=== PATIENT | male | born 1945 | race Caucasian/White ===

== ENCOUNTER 2016-10-21 16:45 | Inpatient (IN) | payer MEDICARE, OTHER ==
--- NOTE | ~2016-10-21 | XA166 ---
[facility] A Service of [facility] & [facility] RADIOLOGY TEXT RESULTS PATIENT: EAMON DURON LOCATION: [facility] 563-01 : 46 UNIT #: [id number] AGE: [address]: Cassidy Gutierrez MD SEX: M ORDER DR: [id number] [facility] [address] [facility]. [place], [place] [address] [id number] I MR#: [id number] Acc #: [id number] NAME: EAMON DURON : 1945 SEX: M STUDY DATE/TIME: 10/27/2016 15:30 UNIT: [facility] ROOM: [facility] STUDY DESCRIPTION: XA PICC Line Placement WO Port Attending Physician: Cassidy Gutierrez M.D. Ordering Physician: Cassidy Gutierrez M.D. Primary Care Physician: Hema Bazan II, M.D. MEDICAL IMAGING REPORT This report is preliminary unless electronic signature is present EXAM PICC line placement 10/27/2016 HISTORY 70-year-old male who needs IV access. PRE-PROCEDURE The procedure was explained to the patient and/or patient special service representative including risks, benefits, potential complications and potential for alternative forms of treatment. Informed consent was obtained, and prior to initiating the procedure a formal timeout procedure was performed. PROCEDURE Using full standard sterile barrier technique, including caps, gowns, gloves, masks, as well as sterile skin preparation and standard sterile draping, the left arm was prepped and draped in the usual fashion, and real-time sterile ultrasound guidance was used to localize an arm vein and to confirm vessel patency. A hard copy ultrasound image was recorded. Left basilic vein was utilized. After local anesthesia with 1% Xylocaine, the vein was punctured using real-time sterile ultrasound guidance, and an 0.018 guidewire was advanced into the superior vena cava, using fluoroscopic guidance. A 5-Martiniquais 42 cm double-lumen PICC was then measured and deployed with the tip positioned in the superior vena cava. The position of the line was documented with a radiographic image. The line was secured in place with an adhesive dressing and an antibiotic patch was applied. Total fluoro time was 0.4 minutes. Reference air kerma 3 mGy. IMPRESSION Successful placement of a 5-Martiniquais 42 cm double-lumen PowerPICC via the left arm under ultrasound and fluoroscopic guidance. The tip of the PICC is in good position in the superior vena cava. [facility]. [facility] A Service of [facility] & [facility] RADIOLOGY TEXT RESULTS PATIENT: EAMON DURON LOCATION: [facility] 563-01 : 46 UNIT #: [id number] AGE: [address]: Cassidy Gutierrez MD SEX: M ORDER DR: Dictated by... Clyde Etienne M.D. THIS IS AN ELECTRONICALLY VERIFIED REPORT Clyde Etienne M.D. at 10/28/2016 8:09 AM Darinel TD: 10/27/2016 18:20 JOB #: [id number] MEDICAL IMAGING REPORT COPY
--- NOTE | ~2016-10-21 | HP ---
Unit #: [id number] #: [id number] Patient: EAMON DURON [id number] [facility] [address]. [place], [place] [address] [id number] I MR#: [id number] NAME: EAMON DURON ROOM: 563 Age: 70 Sex: M Admission Date: 10/21/2016 : 1945 Attending Physician: Julia Garzon M.D. Primary Care Physician: Hema Bazan II, M.D. HISTORY AND PHYSICAL CHIEF COMPLAINT Acute kidney injury. HISTORY OF PRESENT ILLNESS The patient is a 70-year-old male with past medical history of hypertension, GERD, cerebral palsy, mental retardation, who was admitted to [facility] on October 19, 2016 for laparoscopic cholecystectomy. He was apparently initially admitted by the surgery service there. He was found to have dense adhesions during the procedure and was converted to open cholecystectomy with adhesiolysis and partial omentectomy. A drain was placed. He apparently was somewhat tachycardic post procedure and so Medicine was consulted regarding that issue. It was thought to be secondary to pain. Metoprolol is apparently a home medication and was restarted. The patient was transferred to [facility] today due to worsening renal function. The patient's BUN and creatinine were 15 and 1.12 on October 19, 2016. Today they were noted to be 25 and 2.71 respectively. The patient was started on Levaquin postoperatively. The patient is really unable to provide history. Per nursing, he has been tolerating a clear liquid diet. He incontinent so his urine output is unknown. It is unclear when his last bowel movement was. I do not see any urinalysis in the records that were sent with the patient. He is on lisinopril as a home medication which could be contributing as well. PAST MEDICAL HISTORY 1. Mental retardation. 2. Cerebral palsy. 3. Seizure disorder. 4. Hypertension. 5. Immobility. 6. GERD. 7. Hypertension. 8. Dysphagia. PAST SURGICAL HISTORY Open cholecystectomy. SOCIAL HISTORY The patient resides at [place]. There is no tobacco or alcohol use. He is immobile. His code status is a Do Not Resuscitate per discussion with the patient's guardian (Jesse Kaur). That conversation was per nursing. FAMILY HISTORY Unit #: [id number] #: [id number] Patient: EAMON DURON Family history is unobtainable. REVIEW OF SYSTEMS A complete 10-point review of systems is negative except as indicated in the HPI but somewhat limited due to the patient's baseline mental status. DIAGNOSTIC STUDIES LABORATORY: Complete blood count from today showed white blood cell count of 11.1, hemoglobin and hematocrit 10.8 and 33 respectively, platelets are 235. Comprehensive metabolic panel notable for sodium of 141, potassium 4.5, chloride 113, bicarb 21, BUN and creatinine 25 and 2.71 respectively, albumin is 1.3, calcium is 7.4 but corrects to 9.6 when albumin is accounted for. Total protein is 4.2. PHYSICAL EXAMINATION VITAL SIGNS: Temperature 36.8. Heart rate 110. Respirations 20. Blood pressure 143/80. Oxygen saturation 96% on room air. GENERAL: The patient is awake and alert, in no acute distress. HEENT: The head is atraumatic. Mucous membranes are moist. NECK: Neck is supple. Trachea is midline. CARDIOVASCULAR: Regular rate and rhythm. LUNGS: Lungs are clear to auscultation bilaterally with no increased work of breathing. ABDOMEN: Abdomen is soft. Bowel sounds are decreased. There is a bandage that is clean, dry and intact. He also has a YANNA drain with 25 mL of serosanguineous fluid. EXTREMITIES: Show contractures involving the right upper extremity and bilateral lower extremities. There is 3+ pitting edema of the lower extremities. NEUROLOGIC: The patient is awake and alert. SKIN: Skin of examined areas is warm and dry. ASSESSMENT The patient is a 70-year-old male with: 1. Postoperative day number two status post open cholecystectomy. The patient was being followed by Dr. Pruett in [facility]. 2. Acute kidney injury. The patient's creatinine was 1.12 on October 19, 2016. It is 2.71 today. It is unclear if the patient has baseline chronic kidney disease. He was started on Levaquin which could be nephrotoxic. Additionally he is on lisinopril as a home medication that could be contributing as well. I am told that he is tolerating a liquid diet. There is no urinalysis for review. 3. Tachycardia. The patient is on metoprolol. Heart rate was 110 most recently. 4. Dysphagia. 5. Gastroesophageal reflux disease. 6. Cerebral palsy/mental retardation. 7. History of seizures. I do not see any antiepileptic medications on his home medication list. 8. History of methicillin-resistant Staphylococcus aureus. PLAN 1. Admit to intermediate level. 2. Liquid diet. 3. Bedrest. 4. Fall precautions. 5. Consult [facility] regarding open Unit #: [id number] #: [id number] Patient: EAMON DURON cholecystectomy, postop day number two. 6. Urinalysis with culture and sensitivity. 7. Strict Is and Os. 8. STAT labs including CBC, comprehensive metabolic panel, CPK. 9. Check urinalysis. 10. Urine sodium, creatinine and eosinophils. 11. Renal ultrasound. 12. Consult Dr. Macedo regarding acute kidney injury. 13. Discontinue Levaquin. 14. Hold lisinopril and pantoprazole. 15. Will start Zosyn. It appears that the patient was on antibiotics postoperatively. Will start Zosyn pending further recommendations. 16. Fasting lipoid panel. 17. Repeat labs in the morning. 18. Additional workup and consultants based on above. Dictated by Julia Garzon M.D. DESTINY/connie TD: 10/21/2016 17:46 JOB #: [id number] HISTORY AND PHYSICAL X Julia Garzon MD HISTORY AND PHYSICAL
--- NOTE | ~2016-10-21 | DS ---
Unit #: [id number] #: [id number] Patient: EAMON DURON [id number] [address] [address] [id number] I MR#: [id number] NAME: EAMON DURON ROOM: 563 Age: 70 Sex: M Admission Date: 10/21/2016 : 1945 Discharge Date: Attending Physician: Cassidy Gutierrez M.D. Primary Care Physician: Hema Bazan II, M.D. DISCHARGE SUMMARY DISCHARGE DIAGNOSES 1. Acute kidney injury, likely acute tubular necrosis on top of nephrotic syndrome. 2. Nephrotic syndrome. The patient's power of assistant city attorney, Jesse, decided no biopsy and no dialysis. 3. Hypertension, uncontrolled. 4. Hypokalemia. 5. Proteinuria, secondary to nephrotic syndrome. 6. Severe fluid overload, most likely secondary to nephrotic syndrome, likely membranous. Biopsy not done because the power of assistant city attorney does not want it. 7. Yeast urinary tract infection, status post Diflucan. 8. Urinary retention with urethral stricture. The patient had a cystoscopy with urethral dilatation and catheter placement. 9. Recent open cholecystectomy at [facility]. 10. History of mental retardation. 11. Cerebral palsy. 12. Seizure disorder. 13. Immobility. 14. Severe contractures of his extremities. 15. Gastroesophageal reflux disease. 16. Dysphagia. 17. Hypocalcemia. 18. Hypophosphatemia. 19. Hypomagnesemia. 20. Severe protein malnutrition. 21. Anemia, no active bleeding, iron deficiency. CONSULTATIONS 1. Dr. Fitzpatrick. 2. Dr. Macedo. PROCEDURE The patient had cystoscopy with urethral dilatation and catheter placement. DIAGNOSTIC STUDIES LABORATORY: Sodium 141, potassium 3.4, creatinine 4.3, carbon dioxide 24, calcium 7.5. Blood cultures negative. Urine culture growing yeast species, otherwise negative. WBC 11.1, hemoglobin 9.8, platelets 298,000. Complement C3 level is 138. Complement C4 is 33. TSH 2.96. IMAGING: KUB shows some gas, no definite small bowel obstruction. Unit #: [id number] #: [id number] Patient: EAMON DURON Ultrasound of the extremities are negative for left upper extremity venous thrombosis, nonocclusive DVT in the right axillary vein surrounding the indwelling PICC line present. Later, PICC line has been removed. Ultrasound of the kidney shows large cyst in the left kidney, no hydronephrosis, nonspecific fluid collection in the left lower quadrant present. ALLERGIES None. DISCHARGE MEDICATIONS 1. Sodium bicarbonate 650 mg p.o. b.i.d. 2. Tylenol 1000 mg q.6 p.r.n. pain. 3. Ketoconazole 120 mL shampoo to scalp two times weekly. 4. Miconazole nitrate 2% powder apply topically b.i.d. 5. Toprol XL 25 mg p.o. b.i.d. 6. Bisacodyl 10 mg p.r.n. constipation. 7. Senna one tablet daily. 8. Metamucil one packet daily. 9. Bumex 1 mg daily. 10. Pepcid 40 mg daily. 11. Omeprazole 20 daily. HOSPITALIZATION COURSE A 70 year old admitted because of kidney failure. Acute kidney injury, most likely ATN on top of nephrotic syndrome: The patient is seen by Dr. Christian. Because of worsening creatinine, myself and Dr. Christian talked to patient's POA, Jesse. According to him, he does not want any biopsy or dialysis, so no biopsy or no dialysis done. The patient is a very poor candidate for dialysis anyway because of his cerebral palsy and severe contractures of his limbs and mental retardation. The patient was treated medically by Dr. Christian. His creatinine is getting worse, so his POA decided on comfort measures only. He wants him to go back to [facility] and have comfort measures there. Proteinuria, nephrotic syndrome: Likely membranous. Patient did not have biopsy as per POA request. Also, patient has severe protein malnutrition. Sample Grinder was following. Urinary tract infection with yeast: The patient received Diflucan and Rocephin. Rocephin has been discontinued later as the cultures were negative otherwise. Severe fluid overload from proteinuria and nephrotic syndrome: The patient received IV and diuretics. Currently, he is on p.o. Bumex which I am going to continue. I gave prescription. Recent open cholecystectomy: The patient is seen by surgeon. According to them, the wound looks good. Abdomen looks good. He had a KUB which did not show any obstruction. Urinary retention: The patient could not have a catheter placed initially, so urology has been contacted. Later patient was taken to OR for cystoscopy and Malloy catheter placement and urethral dilatation. He did have urethral stricture as per dictation of the urologist. Unit #: [id number] #: [id number] Patient: EAMON DURON Right axillary vein nonocclusive DVT: The patient had a PICC line at that area, which has been removed later. Currently, he does have swelling in all four extremities. DISPOSITION The patient will be discharged to [place] as per Jesse CACERES, request. The patient will have comfort measures there. The patient is a DNR. Discharge time taken is 35 minutes. Discussed with POA. His name is Jesse. Also, discussed with Dr. Christian, nephrology. He is okay for the patient to be discharged to [place] for comfort measures. Dictated by... Saji Morfin TD: 10/29/2016 15:36 JOB #: [id number] DISCHARGE SUMMARY X Cassidy Gutierrez MD X DISCHARGE SUMMARY
--- NOTE | ~2016-10-21 | US139 ---
[facility] A Service of [facility] & [facility] RADIOLOGY TEXT RESULTS PATIENT: EAMON DURON LOCATION: [facility] 563-01 : 46 UNIT #: [id number] AGE: [address]: Cassidy Gutierrez MD SEX: M ORDER DR: [id number] [facility] [address] [place], [place] [address] [id number] I MR#: [id number] Acc #: [id number] NAME: EAMON DURON : 1945 SEX: M STUDY DATE/TIME: 10/26/2016 17:15 UNIT: [facility] ROOM: [facility] STUDY DESCRIPTION: US UE Veins Complete [place] Stdy Attending Physician: Cassidy Gutierrez M.D. Ordering Physician: Cassidy Gutierrez M.D. Primary Care Physician: Hema Bazan II, M.D. MEDICAL IMAGING REPORT This report is preliminary unless electronic signature is present EXAM Bilateral upper extremity duplex Doppler venous ultrasound, 10/26/2016 COMPARISON None. INDICATION 70-year-old male with bilateral upper arm swelling since today. History of cerebral palsy with right arm contraction. Recent placement of a right upper surety PICC on October 22, 2016. FINDINGS RIGHT ARM: The internal jugular vein is fully compressible with normal internal color flow, waveform flow direction. PICC line is seen within the right subclavian vein. Color flow and expected waveform and flow direction are noted in the right subclavian vein. The right axillary vein appears incompletely compressible around the indwelling PICC. There also is diminished flow in the right axillary vein and findings are most consistent with a nonocclusive deep venous thrombosis. There is mild edema in the subcutaneous tissues of the right upper extremity at the level of the cephalic vein proximally. The right cephalic vein is fully compressible. Right basilic vein is fully compressible and the paired brachial veins are fully compressible. There is color flow within the brachial veins. LEFT ARM: Venous ultrasound examination of the left upper extremity was performed using grayscale, spectral Doppler and color flow Doppler imaging. Negative for left upper extremity venous thrombosis. IMPRESSION 1. Negative for left upper extremity venous thrombosis. STS. [facility] A Service of [facility] & [facility] RADIOLOGY TEXT RESULTS PATIENT: EAMON DURON LOCATION: [facility] 563-01 : [birth year] UNIT #: [id number] AGE: [address]: Cassidy Gutierrez MD SEX: M ORDER DR: 2. Nonocclusive deep venous thrombosis in the right axillary vein surrounding the patient's indwelling PICC. Otherwise negative for venous thrombosis in the right upper extremity. Dictated by... Hesham Alicea M.D. THIS IS AN ELECTRONICALLY VERIFIED REPORT Hesham Alicea M.D. at 11/01/2016 5:46 PM JENNIFER/vanesa TD: 10/26/2016 23:37 JOB #: [id number] MEDICAL IMAGING REPORT COPY
--- NOTE | ~2016-10-21 | OR ---
Unit #: [id number] #: [id number] Patient: EAMON DURON [id number] [address] [address] [id number] I MR#: [id number] NAME: EAMON DURON ROOM: 563 Date of Procedure: 10/22/2016 Admission Date: 10/21/2016 Surgeon: Favian Fitzpatrick M.D. : 1945 Attending Physician: Nessa Cisneros M.D. Primary Care Physician: Hema Bazan II, M.D. OPERATIVE REPORT PREOPERATIVE DIAGNOSIS Urinary retention. POSTOPERATIVE DIAGNOSIS Urethral stricture. PROCEDURES PERFORMED Cystoscopy, urethral dilation, and catheter placement. ANESTHESIA MAC. DESCRIPTION OF PROCEDURE After informed consent, he was placed supine on the bed. His penis and perineum were prepped and draped in usual sterile fashion. Monitored anesthesia care was maintained during the procedure with flexible cystoscopy. He had a very obvious pinpoint bulbar urethral stricture using the wire, S-shaped dilators, and regular Amplatz dilators. I was able to dilate him up to 22-Greenlandic. I then placed a 16-Greenlandic [place] tipped catheter into the very firm stricture. He had clear return of urine slightly pink tinged. The catheter was placed for drainage. I secured it to his leg with foam tape. We will need to leave the catheter in for at least 1 to 2 weeks before removing the catheter. The patient tolerated the procedure well. Dictated by... Saji Levy/josesito TD: 10/23/2016 13:29 JOB #: [id number] Unit #: [id number] #: [id number] Patient: EAMON DURON OPERATIVE REPORT X Favian Fitzpatrick MD X PROCEDURE OPERATIVE NOTE
--- NOTE | ~2016-10-21 | US77 ---
[facility] A Service of [facility] RADIOLOGY TEXT RESULTS PATIENT: EAMON DURON LOCATION: [facility] 563-01 : [birth year] UNIT #: [id number] AGE: [address]: Cassidy Gutierrez MD SEX: M ORDER DR: [id number] [facility] [address] [facility] [place], [place] [address] [id number] I MR#: [id number] Acc #: [id number] NAME: EAMON DURON : 1945 SEX: M STUDY DATE/TIME: 10/22/2016 8:31 UNIT: [facility] ROOM: [facility] STUDY DESCRIPTION: US Kidney Bilateral Complete Attending Physician: Nessa Cisneros M.D. Ordering Physician: Julia Garzon M.D. Primary Care Physician: Hema Bazan II, M.D. MEDICAL IMAGING REPORT This report is preliminary unless electronic signature is present EXAM Renal ultrasound INDICATION Acute renal failure. BUN 38, creatinine 2.8, GFR 24. PROCEDURE Ling-scale and Doppler imaging of the kidneys, bladder. COMPARISON None FINDINGS Right kidney is not well seen but measures approximately 10.0 cm. Bladder decompressed by a Malloy catheter and not well seen. There is some fluid seen in the left lower quadrant of the abdomen. There is a 6.9 x 7.7 cm cyst from the left kidney. The left kidney measures 11.0 cm. No hydronephrosis. IMPRESSION 1. Large cyst in the left kidney. 2. No hydronephrosis. 3. Bladder decompressed by a Malloy catheter. 4. Nonspecific fluid is seen in the left lower quadrant of the abdomen. Dictated by... Parker Parker M.D. THIS IS AN ELECTRONICALLY VERIFIED REPORT Parker Parker M.D. at 10/25/2016 9:52 AM Lois TD: 10/22/2016 11:56 [facility] A Service [facility] RADIOLOGY TEXT RESULTS PATIENT: EAMON DURON [facility]63-[facility] [id number] : [birth year] UNIT #: [id number] AGE: [address]: Cassidy Gutierrez MD SEX: M ORDER DR: JOB #: [id number] MEDICAL IMAGING REPORT COPY
--- NOTE | ~2016-10-21 | CO ---
Unit #: [id number] #: [id number] Patient: ELIE BOYLE [id number] [facility]. [place], [place] [address] [id number] I MR#: [id number] NAME: ELIE BOYLE ROOM: 563 Age: 70 Sex: M Admission Date: 10/21/2016 : 1945 Attending Physician: Nessa Cisneros M.D. Primary Care Physician: Hema Bazan II, M.D. Consultation Date: 10/22/2016 CONSULTATION REPORT REASON FOR CONSULTATION Renal insufficiency. Thank you very much for asking us to see this patient in consultation. HISTORY OF PRESENT ILLNESS Mr. Elie Boyle is a 70-year-old gentleman with history of cerebral palsy and mental retardation, who was at [facility] in [place], where he presented on 10/19/2016 with abdominal pain and subsequently was diagnosed with gallbladder disease. Initially, he underwent a laparoscopic cholecystectomy converted to an open cholecystectomy which was done. He was noted prior to surgery to have creatinine of 1.2, it was up to 2.7 yesterday, he was transferred here for further medical care. The patient has a small IV in his foot with not very good function, no catheter, and he does have a history of urinary incontinence. The patient is arousable, but confused. He appears to be comfortable. PAST MEDICAL HISTORY History of hypertension, history of gastroesophageal reflux disease, history of cerebral palsy, history of mental retardation, history of urinary incontinence. ALLERGIES No known drug allergies. CURRENT MEDICATIONS Include Zosyn, Toprol, Pepcid, Senokot, he was apparently given Levaquin there at [facility] in [place]. SOCIAL HISTORY He lives in [facility]. No smoking. No alcohol. FAMILY HISTORY Unable to obtain. REVIEW OF SYSTEMS Unable to obtain. PHYSICAL EXAMINATION VITAL SIGNS: Temperature T-max 99.1, pulse 91 to 111, blood pressure 104 to 124 over 59 to 83 and 550 in and out 125 plus. HEENT: He is normocephalic and atraumatic. Pupils are equal, round, and reactive to light. Extraocular muscles are intact. Hearing appears to be fairly normal, but again it very difficult to assess. His mouth is clear. Unit #: [id number] #: [id number] Patient: ELIE BOYLE No erythema. No exudate. NECK: Supple. No adenopathy. CARDIAC: He has a regular rhythm without a rub. No S3 or S4. LUNGS: His lung sounds fairly clear anteriorly and laterally. ABDOMEN: To drain. Bowel sounds are positive. He does have some positive body edema. He has positive penile edema. EXTREMITIES: He has mild lower extremity edema. His pulses are intact in upper and lower extremities. NEURO: Appears again confused. He is able to move all extremities. : Again, penile edema. Malloy catheter has not been placed yet due to difficulty and is being consulted. SKIN: No acute rashes. DIAGNOSTIC STUDIES LABORATORY RESULTS: Shows sodium of 134, potassium 4.2, chloride is 108, bicarb is 19, BUN of 30, creatinine 2.8 with glucose of 147, calcium 7.2, albumin is 1.3. CPK is 414. Hemoglobin is 11, white count 11,800, and platelets 259,000. ASSESSMENT AND PLAN 1. Acute kidney injury. This gentleman with increasing BUN and creatinine. Decreased output?. Certainly agree with getting a Malloy catheter and we will check renal ultrasound. Once the Malloy was in, we will follow his input and output. We will also check urine studies including UA, culture and sensitivity, urine eosinophils, random urine sodium. I agree with his current medications. He does have increased third space fluid on exam, although he theoretically still could be intravascularly depleted. We will put him on some mild hydration of D5W with 3 amps of bicarb at 75 mL/hour and will follow. He does have a very low albumin as well which contributing to his third space fluid. He has mild increased CPK, I do not think this is playing a role. We will re-check full set of electrolytes in the morning including CPK, troponin CMP, magnesium, and CBC. We will also check blood cultures and again urine cultures to rule out infectious etiologies. We will continue to follow. 2. Metabolic acidosis secondary to renal failure. Again, we will add bicarb and fluids. We will follow. 3. Status post open cholecystectomy. 4. Mental retardation. Dictated byClara Macedo M.D. RIGOBERTO/josesito TD: 10/23/2016 01:59 JOB #: [id number] CONSULTATION REPORT X Fredrick Macedo MD X CONSULTATION REPORT
--- NOTE | ~2016-10-21 | XA166 ---
[facility] A Service of [facility] & [facility] RADIOLOGY TEXT RESULTS PATIENT: EAMON DURON LOCATION: [facility] 563-01 : [birth year] UNIT #: [id number] AGE: [address]: Cassidy Gutierrez MD SEX: M ORDER DR: [id number] [facility]. [place], [place] [address] [id number] I MR#: [id number] #: [id number] NAME: EAMON DURON : 1945 SEX: M STUDY DATE/TIME: 10/22/2016 14:49 UNIT: [facility] ROOM: [facility] STUDY DESCRIPTION: XA PICC Line Placement WO Port Attending Physician: Cassidy Gutierrez M.D. Ordering Physician: Julia Garzon M.D. Primary Care Physician: Hema Bazan II, M.D. MEDICAL IMAGING REPORT This report is preliminary unless electronic signature is present EXAM PICC line placement INDICATIONS As before the access in a patient with acute renal failure, patient is to undergo surgery. PRE-PROCEDURE The procedure was explained to the patient and/or patient assisted sales representative including risks, benefits, potential complications and potential for alternative forms of treatment. Informed consent was obtained, and prior to initiating the procedure a formal timeout procedure was performed. PROCEDURE Using full standard sterile barrier technique, including caps, gowns, gloves, masks, as well as sterile skin preparation and standard sterile draping, the right arm was prepped and draped in the usual fashion, and real-time sterile ultrasound guidance was used to localize an arm vein and to confirm vessel patency. A hard copy ultrasound image was recorded. After local anesthesia with 1% Xylocaine, the vein was punctured using real-time sterile ultrasound guidance, and an 0.018 guidewire was advanced into the superior vena cava, using fluoroscopic guidance. A 5-Dominican dual-lumen PICC was then measured and deployed with the tip positioned in the superior vena cava. The position of the line was documented with a radiographic image. The line was secured in place with an adhesive dressing and an antibiotic patch was applied. Total fluoro time was 0.9 minutes. Ak was 4 mGy. IMPRESSION Successful placement of a 5-Dominican dual-lumen PowerPICC via the right arm [facility] A Service of [facility] RADIOLOGY TEXT RESULTS PATIENT: EAMON DURON LOCATION: [facility] 563-01 : [birth year] UNIT #: [id number] AGE: [address]: Cassidy Gutierrez MD SEX: M ORDER DR: under ultrasound and fluoroscopic guidance. The tip of the PICC is in good position in the superior vena cava. Dictated by... Kenzie Brewster M.D. THIS IS AN ELECTRONICALLY VERIFIED REPORT Kenzie Brewster M.D. at 10/25/2016 5:09 PM DARIANA/alverto TD: 10/25/2016 10:01 JOB #: [id number] MEDICAL IMAGING REPORT COPY
--- NOTE | ~2016-10-21 | CR4 ---
[facility] A Service of [facility] RADIOLOGY TEXT RESULTS PATIENT: EAMON DURON LOCATION: [facility] 5611-03 : [birth year] UNIT #: [id number] AGE: [address]: Cassidy Gutierrez MD SEX: M ORDER DR: [id number] [facility] [address] [facility]. [place], [place] [address] [id number] I MR#: [id number] Acc #: [id number] NAME: EAMON DURON : 1945 SEX: M STUDY DATE/TIME: 10/27/2016 16:10 UNIT: [facility] ROOM: [facility] STUDY DESCRIPTION: CR Abdomen Flat Upright or Dec Attending Physician: Cassidy Gutierrez M.D. Ordering Physician: Cassidy Gutierrez M.D. Primary Care Physician: Hema Bazan II, M.D. MEDICAL IMAGING REPORT This report is preliminary unless electronic signature is present EXAM Abdomen, flat and upright, 10/27/2016. HISTORY Vomiting for 3 days. COMPARISON STUDIES None FINDINGS Flat and upright views of the abdomen were obtained. There is marked levoscoliosis and pelvic deformity. There is a large bladder stone visible; it is at least 3 cm in diameter. There is a catheter present. The bowel gas pattern is nonspecific, with small and large bowel gas without evidence of obstruction. IMPRESSION There is some gas within the small bowel, and it is mildly prominent, but there is no definite evidence of small bowel obstruction. There is a normal amount of gas in the colon, and there is no free air. Dictated by... Manish Sanchez M.D. THIS IS AN ELECTRONICALLY VERIFIED REPORT Manish Sanchez M.D. at 10/28/2016 7:26 AM OSIRIS/valeria TD: 10/27/2016 19:07 JOB #: [id number] [facility] A Service [facility] RADIOLOGY TEXT RESULTS PATIENT: EAMON DURON LOCATION: [facility] : [birth year] UNIT #: [id number] AGE: [address]: Cassidy Gutierrez MD SEX: M ORDER DR: MEDICAL IMAGING REPORT COPY
[2016-10-21] MEDS ORDERED: PAIN & FEVER500 MG PO (20:02)
[2016-10-21] MEDS ORDERED: FAST RELIEF LAX10 MG PR (20:03)
[2016-10-21] MEDS ORDERED: BAZA PROTECT CR57 GM TOP (20:03)
[2016-10-21] MEDS ORDERED: PEPCID40 MG PO (20:04)
[2016-10-21] MEDS ORDERED: KONSYL PO (20:05)
[2016-10-21] MEDS ORDERED: NIZORAL120 ML TOP (20:05)
[2016-10-21] MEDS ORDERED: PRINIVIL10 MG PO (20:06)
[2016-10-21] MEDS ORDERED: METOPROLOL SUCC25 MG PO (20:06)
[2016-10-21] MEDS ORDERED: OMEPRAZOLE20 M1 PO (20:07)
[2016-10-21] MEDS ORDERED: POTASSIUM CHLO10 MEQ PO (20:07)
[2016-10-21] MEDS ORDERED: SENNA PLUS TABL1 TAB PO (20:08)
[2016-10-21 21:24] LABS: HEMATOCRIT 34.7 % (38.0-50.0); MEAN CORPUSCULAR HEMOGLOBIN 25.2 PG (28-34); MEAN CORPUSCULAR HGB CONC 31.5 g/dL (30-36); MEAN PLATELET VOLUME 7.5 FL (6.5-11.5); RED BLOOD COUNT 4.34 X10e (3.90-5.60); RED CELL DISTRIBUTION WIDTH 19.6 % (11.0-15.5); WHITE BLOOD COUNT 11.8 X10e3 (4.0-10.5)
[2016-10-21 21:50] LABS: ALBUMIN SERUM 1.3 g/dL (3.5-5.0); ALKALINE PHOSPHATASE 70 U/L (32-92); ALT (SGPT) <5 U/L (10-40); AST (SGOT) 30 U/L (10-42); BILIRUBIN,TOTAL 0.3 mg/dL (0.2-2.0); BLOOD UREA NITROGEN 30 mg/dL (9-23); BUN/CREATININE RATIO 10.71; CALCIUM SERUM 7.2 mg/dL (8.4-10.2); CARBON DIOXIDE 19 mmol/L (22-31); CHLORIDE 108 mmol/L (100-111); CPK (CREATINE PHOSPHOKINASE) 414 IU/L (36-174); CREATININE SERUM 2.8 mg/dL (0.6-1.4); GLUCOSE FASTING 147 mg/dL (70-110); POTASSIUM 4.2 mmol/L (3.5-5.1); PROTEIN TOTAL SERUM 4.6 g/dL (6.0-8.3); SODIUM 134 mmol/L (135-145)
[2016-10-22 19:46] LABS: HEMOGLOBIN 10.8 gm/dL (13.0-16.0); MEAN CELL VOLUME 81.5 FL (83-96); MEAN CORPUSCULAR HEMOGLOBIN 25.8 PG (28-34); MEAN CORPUSCULAR HGB CONC 31.7 g/dL (30-36); MEAN PLATELET VOLUME 7.5 FL (6.5-11.5); RED BLOOD COUNT 4.17 X10e (3.90-5.60); RED CELL DISTRIBUTION WIDTH 19.9 % (11.0-15.5); WHITE BLOOD COUNT 11.1 X10e3 (4.0-10.5)
[2016-10-22 20:11] LABS: ALBUMIN SERUM 1.3 g/dL (3.5-5.0); ALKALINE PHOSPHATASE 70 U/L (32-92); AST (SGOT) 24 U/L (10-42); BILIRUBIN,TOTAL 0.6 mg/dL (0.2-2.0); BLOOD UREA NITROGEN 31 mg/dL (9-23); CALCIUM SERUM 7.1 mg/dL (8.4-10.2); CARBON DIOXIDE 17 mmol/L (22-31); CHLORIDE 115 mmol/L (100-111); CPK (CREATINE PHOSPHOKINASE) 296 IU/L (36-174); CREATININE SERUM 3.1 mg/dL (0.6-1.4); GLOM FILT RATE Estimated 21.3 mL/min (>60); GLUCOSE FASTING 87 mg/dL (70-110); POTASSIUM 4.5 mmol/L (3.5-5.1); PROTEIN TOTAL SERUM 4.3 g/dL (6.0-8.3); SODIUM 138 mmol/L (135-145)
[2016-10-22 20:12] LABS: ALT (SGPT) <5 U/L (10-40)
[2016-10-22 20:29] LABS: CHOLESTEROL 194 mg/dL (0-200); HDL CHOLESTEROL 30 mg/dL (29-75); LDL/HDL RATIO 5 RATIO (0-4); TRIGLYCERIDES 126 mg/dL (10-160)
[2016-10-22 20:33] LABS: LDL CHOLESTEROL 139 mg/dL (-130)
[2016-10-23 07:21] LABS: HEMATOCRIT 29.1 % (38.0-50.0); HEMOGLOBIN 9.5 gm/dL (13.0-16.0); MEAN CELL VOLUME 79.8 FL (83-96); MEAN CORPUSCULAR HGB CONC 32.5 g/dL (30-36); MEAN PLATELET VOLUME 7.8 FL (6.5-11.5); RED BLOOD COUNT 3.65 X10e (3.90-5.60); RED CELL DISTRIBUTION WIDTH 19.5 % (11.0-15.5); WHITE BLOOD COUNT 9.6 X10e3 (4.0-10.5)
[2016-10-23 08:27] LABS: ALBUMIN SERUM 1.1 g/dL (3.5-5.0); BILIRUBIN,TOTAL 0.5 mg/dL (0.2-2.0); BUN/CREATININE RATIO 10.66; CALCIUM SERUM 7.1 mg/dL (8.4-10.2); GLOM FILT RATE Estimated 22.2 mL/min (>60); MAGNESIUM 1.4 mg/dL (1.6-3.0); PHOSPHOROUS 3.5 mg/dL (2.5-4.6); POTASSIUM 4.2 mmol/L (3.5-5.1); PROTEIN TOTAL SERUM 3.9 g/dL (6.0-8.3)
[2016-10-23 20:26] LABS: URINE APPEARANCE TURBID; URINE BILIRUBIN NEG (NEG); URINE BLOOD 3+ (NEG); URINE COLOR YELLOW; URINE GLUCOSE NEG (NEG); URINE KETONE NEG (NEG); URINE LEUKOCYTE ESTERASE 2+ (NEG); URINE NITRATE NEG (NEG); URINE PH 5.5 (5-8); URINE PROTEIN 3+ (NEG); URINE UROBILINOGEN 0.2 MG/DL (NEG)
[2016-10-23 20:28] LABS: URBCS1 AUWI 200-300 /[HPF] (0-2); URINE BACTERIA AUWI NEG (NEGATIVE); URINE SQUAMOUS EPITHELIAL CELL FEW /[HPF]; UWBCS1 AUWI INNUM (0-5)
[2016-10-23 20:33] LABS: U HYALINE CASTS AUWI 0-2 /[LPF]
[2016-10-24 05:51] LABS: URINE APPEARANCE CLOUDY; URINE BILIRUBIN NEG (NEG); URINE BLOOD 3+ (NEG); URINE COLOR YELLOW; URINE GLUCOSE NEG (NEG); URINE KETONE NEG (NEG); URINE LEUKOCYTE ESTERASE 1+ (NEG); URINE NITRATE NEG (NEG); URINE PH 5.5 (5-8); URINE PROTEIN 3+ (NEG); URINE SPECIFIC GRAVITY 1.021 (1.003-1.035); URINE UROBILINOGEN 0.2 MG/DL (NEG)
[2016-10-24 05:53] LABS: URBCS1 AUWI INNUM /[HPF] (0-2); URINE BACTERIA AUWI NEG (NEGATIVE); URINE SQUAMOUS EPITHELIAL CELL OCC /[HPF]; UWBCS1 AUWI 100-200 (0-5)
[2016-10-24 06:07] LABS: URINE YEAST PRESENT
[2016-10-24 06:37] LABS: HEMATOCRIT 29.5 % (38.0-50.0); HEMOGLOBIN 9.7 gm/dL (13.0-16.0); MEAN CELL VOLUME 79.1 FL (83-96); MEAN CORPUSCULAR HEMOGLOBIN 26.1 PG (28-34); MEAN PLATELET VOLUME 7.4 FL (6.5-11.5); RED BLOOD COUNT 3.73 X10e (3.90-5.60); RED CELL DISTRIBUTION WIDTH 19.2 % (11.0-15.5); WHITE BLOOD COUNT 9.5 X10e3 (4.0-10.5)
[2016-10-24 07:24] LABS: ALBUMIN SERUM 1.2 g/dL (3.5-5.0); BILIRUBIN,TOTAL 0.5 mg/dL (0.2-2.0); BUN/CREATININE RATIO 10.33; CALCIUM SERUM 7.1 mg/dL (8.4-10.2); GLOM FILT RATE Estimated 22.2 mL/min (>60); MAGNESIUM 1.9 mg/dL (1.6-3.0); PROTEIN TOTAL SERUM 4.2 g/dL (6.0-8.3)
[2016-10-25 05:32] LABS: HEMATOCRIT 29.9 % (38.0-50.0); HEMOGLOBIN 9.8 gm/dL (13.0-16.0); MEAN CORPUSCULAR HEMOGLOBIN 25.8 PG (28-34); MEAN CORPUSCULAR HGB CONC 32.7 g/dL (30-36); MEAN PLATELET VOLUME 7.3 FL (6.5-11.5); RED BLOOD COUNT 3.79 X10e (3.90-5.60); RED CELL DISTRIBUTION WIDTH 18.9 % (11.0-15.5); WHITE BLOOD COUNT 9.3 X10e3 (4.0-10.5)
[2016-10-25 06:32] LABS: ALBUMIN SERUM 1.2 g/dL (3.5-5.0); ALKALINE PHOSPHATASE 62 U/L (32-92); AST (SGOT) 15 U/L (10-42); BILIRUBIN,TOTAL 0.3 mg/dL (0.2-2.0); BLOOD UREA NITROGEN 32 mg/dL (9-23); BUN/CREATININE RATIO 10.32; CALCIUM SERUM 7.1 mg/dL (8.4-10.2); CARBON DIOXIDE 26 mmol/L (22-31); CHLORIDE 102 mmol/L (100-111); CREATININE SERUM 3.1 mg/dL (0.6-1.4); GLOM FILT RATE Estimated 21.3 mL/min (>60); GLUCOSE FASTING 81 mg/dL (70-110); MAGNESIUM 1.7 mg/dL (1.6-3.0); PHOSPHOROUS 3.5 mg/dL (2.5-4.6); PROTEIN TOTAL SERUM 4.4 g/dL (6.0-8.3); SODIUM 139 mmol/L (135-145)
[2016-10-25 06:33] LABS: ALT (SGPT) <5 U/L (10-40)
[2016-10-25 16:55] LABS: CREATININE,RANDOM URINE 52 mg/dL
[2016-10-25 16:56] LABS: TOTAL PROTEIN,RANDOM URINE 718 mg/dl (<10)
[2016-10-26 06:49] LABS: BASOPHIL# 0.1 X10e3 (0-0.3); BASOPHIL% 0.8 % (0-2.5); EOSINOPHIL# 0.8 X10e3 (0-0.7); EOSINOPHIL% 7.8 % (0.0-7.0); HEMATOCRIT 30.7 % (38.0-50.0); LYMPHOCYTE# 1.5 X10e3 (1.0-3.5); LYMPHOCYTE% 15.2 % (17.0-45.0); MEAN CELL VOLUME 79.3 FL (83-96); MEAN CORPUSCULAR HEMOGLOBIN 25.8 PG (28-34); MEAN CORPUSCULAR HGB CONC 32.5 g/dL (30-36); MEAN PLATELET VOLUME 7.3 FL (6.5-11.5); MONOCYTE# 0.6 X10e3 (0-1.0); MONOCYTE% 6.5 % (3.0-12.0); NEUTROPHIL# 6.8 X10e3 (1.5-7.1); NEUTROPHIL% 69.7 % (40-75); PLATELET COUNT 244 X10e3 (140-420); RED BLOOD COUNT 3.87 X10e (3.90-5.60); RED CELL DISTRIBUTION WIDTH 18.9 % (11.0-15.5); WHITE BLOOD COUNT 9.8 X10e3 (4.0-10.5)
[2016-10-26 06:50] LABS: DIFF IND NO
[2016-10-26 07:25] LABS: CALCIUM SERUM 7.2 mg/dL (8.4-10.2); CREATININE SERUM 3.3 mg/dL (0.6-1.4); GLOM FILT RATE Estimated 19.9 mL/min (>60); POTASSIUM 3.7 mmol/L (3.5-5.1)
[2016-10-26 13:57] LABS: URINE APPEARANCE TURBID; URINE BILIRUBIN NEG (NEG); URINE BLOOD 2+ (NEG); URINE COLOR YELLOW; URINE GLUCOSE NEG (NEG); URINE KETONE NEG (NEG); URINE LEUKOCYTE ESTERASE 3+ (NEG); URINE NITRATE NEG (NEG); URINE PROTEIN 3+ (NEG); URINE SPECIFIC GRAVITY 1.015 (1.003-1.035); URINE UROBILINOGEN 0.2 MG/DL (NEG)
[2016-10-26 14:01] LABS: URBCS1 AUWI 25-50 /[HPF] (0-2); URINE BACTERIA AUWI NEG (NEGATIVE); URINE SQUAMOUS EPITHELIAL CELL FEW /[HPF]; UWBCS1 AUWI INNUM (0-5)
[2016-10-27 06:52] LABS: URINE APPEARANCE TURBID; URINE BILIRUBIN NEG (NEG); URINE BLOOD 2+ (NEG); URINE COLOR YELLOW; URINE GLUCOSE NEG (NEG); URINE KETONE 1+ (NEG); URINE LEUKOCYTE ESTERASE 3+ (NEG); URINE NITRATE NEG (NEG); URINE PROTEIN 3+ (NEG); URINE SPECIFIC GRAVITY 1.013 (1.003-1.035); URINE UROBILINOGEN 0.2 MG/DL (NEG)
[2016-10-27 06:55] LABS: CULTURE INDICATED? YES; URBCS1 AUWI 25-50 /[HPF] (0-2); URINE SQUAMOUS EPITHELIAL CELL MANY /[HPF]
[2016-10-27 07:13] LABS: U HYALINE CASTS AUWI 0-2 /[LPF]
[2016-10-27 07:14] LABS: URINE BACTERIA AUWI 2+ (NEGATIVE)
[2016-10-27 07:22] LABS: URINE TRANSITIONAL EPI CELLS FEW /[HPF]; UWBCS1 AUWI INNUM (0-5)
[2016-10-27 17:34] LABS: ALBUMIN SERUM 1.3 g/dL (3.5-5.0); BILIRUBIN,TOTAL 0.9 mg/dL (0.2-2.0); BUN/CREATININE RATIO 9.72; CALCIUM SERUM 7.2 mg/dL (8.4-10.2); CREATININE SERUM 3.7 mg/dL (0.6-1.4); GLOM FILT RATE Estimated 17.4 mL/min (>60); POTASSIUM 3.3 mmol/L (3.5-5.1); PROTEIN TOTAL SERUM 4.6 g/dL (6.0-8.3)
[2016-10-28 01:42] LABS: COMPLEMENT C3 138 mg/dL (90-180); COMPLEMENT C4 33 mg/dL (16-47)
[2016-10-28 05:30] LABS: HEMATOCRIT 30.4 % (38.0-50.0); HEMOGLOBIN 9.8 gm/dL (13.0-16.0); MEAN CELL VOLUME 79.9 FL (83-96); MEAN CORPUSCULAR HEMOGLOBIN 25.7 PG (28-34); MEAN CORPUSCULAR HGB CONC 32.2 g/dL (30-36); MEAN PLATELET VOLUME 7.1 FL (6.5-11.5); RED BLOOD COUNT 3.81 X10e (3.90-5.60); RED CELL DISTRIBUTION WIDTH 19.3 % (11.0-15.5); WHITE BLOOD COUNT 11.1 X10e3 (4.0-10.5)
[2016-10-28 07:00] LABS: ALBUMIN SERUM 1.2 g/dL (3.5-5.0); BILIRUBIN,TOTAL 0.8 mg/dL (0.2-2.0); CALCIUM SERUM 7.6 mg/dL (8.4-10.2); GLOM FILT RATE Estimated 15.9 mL/min (>60); MAGNESIUM 1.6 mg/dL (1.6-3.0); PHOSPHOROUS 5.5 mg/dL (2.5-4.6); POTASSIUM 3.5 mmol/L (3.5-5.1); PROTEIN TOTAL SERUM 4.4 g/dL (6.0-8.3)
[2016-10-28 22:55] LABS: ANA SCREEN Negative (Negative); HA AB IGM (HEPPAN) Nonreactive (Nonreactive); HB CORE AB IGM (HEPPAN) Nonreactive (Nonreactive); HB S AG (HEPPAN) Nonreactive (Nonreactive); HEP C AB (HEPPAN) Nonreactive (Nonreactive); HEP C AB SIGNAL TO CUTOFF 0.05 ratio (<1.00); MYELOPEROXIDASE AB (PNL) <1.0 AI (<1.0); PROTEINASE-3 AB (PNL) <1.0 AI (<1.0); SPE A1GLOB (PNL) 0.4 g/dL (0.2-0.3); SPE ALB (PNL) 1.4 g/dL (3.8-4.8); SPE BETA 1 GLOBULIN 0.3 g/dL (0.4-0.6); SPE BETA 2 GLOBULIN 0.4 g/dL (0.2-0.5); SPE GAMMA (PNL) 0.6 g/dL (0.8-1.7); SPETP (PNL) 4.1 g/dL (6.1-8.1)
[2016-10-29 06:46] LABS: BUN/CREATININE RATIO 8.6; CALCIUM SERUM 7.5 mg/dL (8.4-10.2); CREATININE SERUM 4.3 mg/dL (0.6-1.4); GLOM FILT RATE Estimated 14.6 mL/min (>60); POTASSIUM 3.4 mmol/L (3.5-5.1)
[2016-11-01 08:41] LABS: UPE RAND ALPHA1 GLOB 18 % (()); UPE RAND PROT/CREAT 16047 (22-128); UPE RANDOM ALB (PNL) 45 % (()); UPE RANDOM ALPHA 2 GLOB 10 % (()); UPE RANDOM BETA GLOB 14 % (()); UPE RANDOM CREATININE 59.2 mg/dL (20-370); UPE RANDOM GAMMA GLOB 12 % (()); UPE RANDOM TOTAL PROTEIN (PNL) 950 mg/dL (5-25)
== END 2016-10-30 09:39 | DRG 698 ==
LOC: C5C 16:45
PROVIDERS: Family Medicine; Internal Medicine; Internal Medicine Nephrology; Surgery; Urology
PROC: B518YZA Fluoroscopy of Superior Vena Cava using Other Contrast, Guidance (ICD-10-PCS; 2016-10-22)
PROC: B548ZZA Ultrasonography of Superior Vena Cava, Guidance (ICD-10-PCS; 2016-10-22)
PROC: 02HV33Z Insertion of Infusion Device into Superior Vena Cava, Percutaneous Approach (ICD-10-PCS; principal; 2016-10-22 13:00)
DX: N04.9 Nephrotic syndrome with unspecified morphologic changes (principal); E43 Unspecified severe protein-calorie malnutrition; E87.2 Acidosis; E83.51 Hypocalcemia; E83.42 Hypomagnesemia; B37.49 Other urogenital candidiasis; T82.868A Thrombosis due to vascular prosthetic devices, implants and grafts, initial encounter; N17.0 Acute kidney failure with tubular necrosis; I10 Essential (primary) hypertension; E87.6 Hypokalemia; R80.9 Proteinuria, unspecified; E87.70 Fluid overload, unspecified; R33.9 Retention of urine, unspecified; N35.9 Urethral stricture, unspecified; F79 Unspecified intellectual disabilities; G80.9 Cerebral palsy, unspecified; K21.9 Gastro-esophageal reflux disease without esophagitis; Z51.5 Encounter for palliative care; Z90.49 Acquired absence of other specified parts of digestive tract
CPT/HCPCS: 74020; 76770; 76937; 77001; 80048; 80053; 80061; 80074; 81003; 82550; 82570; 82947; 83520; 83735; 84100; 84156; 84165; 84166; 84300; 84443; 84484; 85025; 85027; 86021; 86038; 86039; 86160; 86334; 86335; 87040; 87086; 89190; 93970; C1725; C1751; J0696; J1450; J1650; J1940; J2250; J2405; J2543; J3010; J3475; J7060; Q9967